=== PATIENT | female | born 1960 | race Caucasian/White ===

== ENCOUNTER 2022-10-19 10:55 | Outpatient (CLI) | payer BC ==
[2022-10-19 12:28] LABS: #Eosinphils 0.2 10x3/uL (0.0-0.5); #Monocytes 0.4 10x3/uL (0.0-1.1); #Neutrophils 3.6 10x3/uL (1.5-8.4); %Basophils 0.3 % (0.0-2.0); %Eosinophils 2.5 % (0.0-6.0); %Lymphocytes 34.3 % (18.0-47.0); %Monocytes 6.7 % (0.0-10.0); %Neutrophils 55.7 % (40.0-75.0); Hematocrit 42.2 % (34.9-44.5); Hemoglobin 13.9 g/dL (12.0-15.5); Mean Corpuscular HGB CONC 32.9 g/dL (32.0-36.0); Mean Corpuscular Volume 91.1 fl (81.6-98.3); Mean Platelet Volume 12.4 fl (7.4-10.4); Platelet Count 238 10x3/uL (150-450); RBC Distribution Width 12.6 % (11.5-14.5); Red Blood Cell (RBC) Count 4.63 10x6/uL (3.90-5.03); White Blood Cell (WBC) Count 6.4 10x3/uL (3.5-10.5)
[2022-10-19 12:59] LABS: ALT (SGPT) 21 U/L (8-55); AST (SGOT) 20 U/L (5-34); Albumin 4.6 g/dL (3.4-4.8); Alkaline Phosphatase 35 U/L (40-110); Anion Gap 17 mmol/L (10-20); BUN (Urea Nitrogen) 13 mg/dL (9.8-20.1); Bilirubin, Direct 0.3 mg/dL (0.1-0.3); Bilirubin, Total 1.2 mg/dL (0.2-1.2); Calc. Creatinine Clearance 0 mL/min (70-130); Calcium 9.9 mg/dL (7.8-10.44); Carbon Dioxide 21 mmol/L (23-31); Chloride 107 mmol/L (98-107); Estimated GFR 89; Globulin 2.8 g/dL (2.4-3.5); Glucose 95 mg/dL (80-115); Potassium 4.4 mmol/L (3.5-5.1); Protein, Total 7.4 g/dL (5.8-8.1); Sodium 141 mmol/L (136-145)
== END 2022-10-19 10:56 | disposition home or self-care (01) ==
LOC: LABBT 10:55
PROVIDERS: ATTEND Surgery
DX: Z01.818 Encounter for other preprocedural examination (principal)
CPT/HCPCS: 80053; 80076; 85025; 93005; 93010

== ENCOUNTER 2022-10-20 08:19 | Day surgery (SDC) | payer BC ==
[2022-10-19 11:46] VITALS: BMI 33.6
[2022-10-20] MEDS ORDERED: Bupivacaine 0.25% HCL 30 ML VIAL ONE (10:01)
[2022-10-20] MEDS ORDERED: Indocyanine Green 25 MG/10 ML VIAL ONE (10:01)
[2022-10-20] MEDS ORDERED: EPINEPHrine 1 MG/ML AMP ONE (10:01)
[2022-10-20] MEDS ORDERED: fentaNYL PF 100 MCG/2 ML SYRINGE ONE ×2 (10:29)
[2022-10-20] MEDS ORDERED: Levofloxacin 500 mg/D5W 100 ml Premix Bag ONE (10:32)
[2022-10-20] MEDS ORDERED: Rocuronium Bromide 10 MG/ML (10ML VIAL) ONE (10:42)
[2022-10-20] MEDS ORDERED: ePHEDrine Sulfate 50 MG/10 ML VIAL ONE (10:42)
[2022-10-20] MEDS ORDERED: Glycopyrrolate 0.2 MG/ML 5 ML SYRINGE ONE (10:42)
[2022-10-20] MEDS ORDERED: Ketorolac Tromethamine 30 MG/ML VIAL ONE (10:42)
[2022-10-20] MEDS ORDERED: NEOSTIGMINE 3 MG/3 ML SYR 3 MG/3 ML SYRINGE ONE (10:42)
[2022-10-20] MEDS ORDERED: Ondansetron PF 4 MG/2 ML Vial ONE (10:42)
[2022-10-20] MEDS ORDERED: PROPOFOL 200 MG/20 ML VIAL ONE (10:42)
[2022-10-20] MEDS ORDERED: Dexamethasone 20 MG/5 ML VIAL ONE (10:42)
[2022-10-20] MEDS ORDERED: Lidocaine 1% PF 5 ML VIAL ONE (10:42)
== END 2022-10-20 14:50 | disposition home or self-care (01) ==
LOC: SDC 08:19
PROVIDERS: ATTEND Surgery
PROC: 0FT44ZZ Resection of Gallbladder, Percutaneous Endoscopic Approach (ICD-10-PCS; principal; 2022-10-20)
DX: K80.64 Calculus of gallbladder and bile duct with chronic cholecystitis without obstruction (principal)
CPT/HCPCS: 87070; 87205; 88304; J0171; J1100; J1885; J1956; J2405; J2704; S0020